=== PATIENT | male | born 1965 | race Caucasian/White ===

== ENCOUNTER 2017-03-14 15:33 | Emergency (ER) | payer OTHER ==
[~2017-03-14] VITALS: Ht 177.8 cm; Wt 109.9 kg
[~2017-03-14 15:33] MED LIST: ARTIFICIALS TEA30 ML BOTH EYES; CYCLOGYL 140 DROP/2 BOTH EYES; CYMBALTA60 MG PO; ERYTHROMYC1 APPLICAT BOTH EYES; FLOMAX0.4 MG PO; JANUMET 50/11 TABLET PO; LOPID600 MG PO; NEURONTIN600 MG PO; OPANA ER15 MG PO; PERCOCET 10/1 TABLET PO; POLYTRIM EYE DR10 ML BOTH EYES; XANAX0.5 MG PO
[2017-03-14 16:58] LABS: HEMATOCRIT 42.8 % (38.0-50.0); MCH 28.2 PG (29.0-34.0); MCHC 33.9 G/DL (30.0-36.0); MCV 83.1 FL (86-99); MEAN PLAT.VOLUME 9.4 uM^3 (9.0-12.4); PLATELET COUNT 344 K/uL (156-360); RBC DIS.WIDTH-CV 13.2 % (11.8-14.6); RBC DIS.WIDTH-SD 39.7 % (39-53); RED BLOOD COUNT 5.15 M/uL (4.00-5.50); WHITE BLOOD COUNT 6.9 K/uL (4.1-10.2)
[2017-03-14 17:10] LABS: CHLORIDE 106 mEq/L (99-109); SODIUM 141 mEq/L (136-147)
[2017-03-14 17:12] LABS: GLUCOSE 127 mg/dL (70-99)
[2017-03-14 17:14] LABS: ANION GAP 12 MEQ/L (2-14)
[2017-03-14 17:16] LABS: GFR ESTIMATE (CALCULATED) > 59 mL/min/
[2017-03-14 17:17] LABS: UREA NITROGEN (BUN) 16 mg/dL (9-23)
[2017-03-14] MEDS ORDERED: TRAZODONE HCL100 MG PO (17:49)
[2017-03-14] MEDS ORDERED: PROCTOCORT30 M1 PR (22:17)
[2017-03-14] MEDS ORDERED: FLAGYL500 MG PO (22:17)
[2017-03-14] MEDS ORDERED: CIPRO500 MG PO (22:17)
[2017-03-14 23:00] VITALS: BP 134/79
== END 2017-03-14 23:02 | disposition home or self-care (01) ==
LOC: EME 15:33
DX: K92.2 Gastrointestinal hemorrhage, unspecified (principal); Z80.0 Family history of malignant neoplasm of digestive organs; E11.9 Type 2 diabetes mellitus without complications
CPT/HCPCS: 74176; 80048; 85027; 86850; 86900; 86901; 99281; 99285; J2270; J2405; J7030

== ENCOUNTER 2017-06-13 17:35 | Emergency (ER) | payer OTHER ==
[~2017-06-13] VITALS: Ht 177.8 cm; Wt 108.8 kg
[~2017-06-13 17:35] MED LIST changes: +CIPRO500 MG PO; +FLAGYL500 MG PO; +PROCTOCORT30 M1 PR; +TRAZODONE HCL100 MG PO
[2017-06-13] MEDS ORDERED: ANECREAM30 GM TP (19:46)
[2017-06-13] MEDS ORDERED: PROCTOFOAM15 GM TP (19:47)
[2017-06-13 20:00] VITALS: BP 96/76
== END 2017-06-13 20:01 | disposition home or self-care (01) ==
LOC: EME 17:35
DX: K60.2 Anal fissure, unspecified (principal); E11.9 Type 2 diabetes mellitus without complications; Z79.84 Long term (current) use of oral hypoglycemic drugs
CPT/HCPCS: 99281; 99284